=== PATIENT | male | born 1985 | race African-American/Black ===

== ENCOUNTER 2017-03-22 18:31 | Emergency (ER) | payer OTHER ==
[~2017-03-22] VITALS: Ht 175.3 cm; Wt 72.6 kg
[~2017-03-22 18:31] MED LIST: MOBIC15 M1 PO
--- NOTE | 2017-03-22 19:45 | ED GENERAL ADULT ---
History of Present Illness General Chief Complaint: Male Genitourinary Problems Stated Complaint: "CHECK UP" Vital Signs & Intake/Output Vital Signs & Intake/Output Vital Signs Date Time Temp Pulse Resp B/P B/P Pulse O2 O2 Flow FiO2 Mean Ox Delivery Rate 03/22 2028 98.3 79 18 132/79 98 Room Air 03/22 1903 97.6 79 18 130/80 98 Room Air ED Intake and Output 03/23 0000 03/22 1200 Intake Total Output Total Balance Patient 160 lb Weight Weight Reported by Patient Measurement Method Allergies Coded Allergies: NO KNOWN ALLERGIES (07/27/16) Reconcile Medications Meloxicam (Mobic) 15 MG TABLET 1 TAB PO DAILY PRN PAIN/INFLAMMATION Triage Note: PT IS REQUESTING STD EVALUATION HE HAS BEEN HAVING UNPROTECTED SEX. DENIED SYMPTOMS, JUST WANTS TO KNOW. Past History Travel History Traveled to [place] past 21 day No Medical History Psychiatric: schizophrenia Surgical History Surgical History: non-contributory Psychosocial History What is your primary language Kazakh Tobacco Use: Current Daily Use Daily Tobacco Use Amount/Type: => 5 Cigarettes daily Progress Plan of Care: Orders Procedure Date/time Status CHLAMYDIA-GC DNA PROBE 03/22 1955 Active URINALYSIS 03/22 1955 Complete Laboratory Tests 03/22/171957: Urine Color YEL, Urine Clarity CLEAR, Urine pH 6.0, Ur Specific [place] 1.025, Urine Protein NEG, Urine Ketones NEG, Urine Nitrite NEG, Urine Bilirubin NEG, Urine Urobilinogen 0.2, Ur Leukocyte Esterase NEG, Ur Microscopic EXAM NOT REQUIRED, Urine Hemoglobin NEG, Urine Glucose NEG Microbiology 03/22 1958 URINE ROUT: GC DNA Probe - RECD 03/22 1958 URINE ROUT: Chlamydia DNA Probe (MOISES) - RECD Departure Departure Condition: Stable Referrals: SANTANA PEREZ APRN (PCP/Family) Departure Forms: Customer Survey General Discharge Information
--- NOTE | 2017-03-22 19:57 | ED GI/GU/ABDOMINAL COMPLAINT ---
History of Present Illness General Chief Complaint: Male Genitourinary Problems Stated Complaint: "CHECK UP" Source: patient Exam Limitations: no limitations Vital Signs & Intake/Output Vital Signs & Intake/Output Vital Signs Date Time Temp Pulse Resp B/P B/P Pulse O2 O2 Flow FiO2 Mean Ox Delivery Rate 03/22 2028 98.3 79 18 132/79 98 Room Air 03/22 1903 97.6 79 18 130/80 98 Room Air Allergies Coded Allergies: NO KNOWN ALLERGIES (07/27/16) Reconcile Medications Meloxicam (Mobic) 15 MG TABLET 1 TAB PO DAILY PRN PAIN/INFLAMMATION Triage Note: PT IS REQUESTING STD EVALUATION HE HAS BEEN HAVING UNPROTECTED SEX. DENIED SYMPTOMS, JUST WANTS TO KNOW. Triage Nurses Notes Reviewed? yes HPI: Patient presents to the emergency department requesting to be tested for STD. Patient had unprotected sex 3 weeks ago. Patient states last week he noticed a little bit of penile discharge. There is no dysuria. There is no fevers or chills. Patient denies any pain. Past History Travel History Traveled to [place] past 21 day No Medical History Any Pertinent Medical History? see below for history Psychiatric: schizophrenia Surgical History Surgical History: non-contributory Psychosocial History What is your primary language Yi Tobacco Use: Current Daily Use Daily Tobacco Use Amount/Type: => 5 Cigarettes daily ETOH Use: occasional use Illicit Drug Use: marijuana Family History Hx Contributory? No Review of Systems Review of Systems Constitutional: Reports: no symptoms. Respiratory: Reports: no symptoms. Cardiovascular: Reports: no symptoms. Genitourinary: Reports: see HPI. Neurological/Psychological: Reports: no symptoms. Immunologic/Allergic: Reports: no symptoms. Physical Exam Physical Exam General Appearance: well developed/nourished, alert, awake, anxious Head: atraumatic Eyes: Bilateral: PERRL, EOMI. Respiratory: normal breath sounds, chest non-tender, no respiratory distress, lungs clear Cardiovascular: regular rate/rhythm, normal peripheral pulses Gastrointestinal: normal bowel sounds, soft, non-tender, no organomegaly Male Genitals: normal genitalia, NO DISCHARGE NOTED Neurologic/Psych: no motor/sensory deficits, awake, alert, oriented x 3, normal gait, normal mood/affect Core Measures ACS in differential dx? No Severe Sepsis Present: No Septic Shock Present: No Progress Differential Diagnosis: urethritis, UTI/pyelo Plan of Care: Orders Procedure Date/time Status CHLAMYDIA-GC DNA PROBE 03/22 1955 Active URINALYSIS 03/22 1955 Complete Laboratory Tests 03/22/171957: Urine Color YEL, Urine Clarity CLEAR, Urine pH 6.0, Ur Specific [place] 1.025, Urine Protein NEG, Urine Ketones NEG, Urine Nitrite NEG, Urine Bilirubin NEG, Urine Urobilinogen 0.2, Ur Leukocyte Esterase NEG, Ur Microscopic EXAM NOT REQUIRED, Urine Hemoglobin NEG, Urine Glucose NEG Microbiology 03/22 1958 URINE ROUT: GC DNA Probe - RECD 03/22 1958 URINE ROUT: Chlamydia DNA Probe (MOISES) - RECD Initial ED EKG: none Departure Departure Disposition: HOME OR SELF CARE Condition: Stable Clinical Impression Primary Impression: STD exposure Referrals: SANTANA PEREZ APRN (PCP/Family) Additional Instructions: MAKE SURE YOU WEAR A CONDUM EVERY TIME YOU HAVE SEX RETURN FOR ANY CONCERNS Departure Forms: Customer Survey General Discharge Information
[2017-03-22 20:28] VITALS: BP 132/79
== END 2017-03-22 20:29 ==
LOC: ERH 18:31
DX: Z20.2 Contact with and (suspected) exposure to infections with a predominantly sexual mode of transmission (principal)
CPT/HCPCS: 81003; 87491; 87591; 96372; J0456; J0696